=== PATIENT | female | born 1960 | race Caucasian/White ===

== ENCOUNTER 2017-07-16 08:15 | Inpatient (IN) | payer OTHER ==
[2017-07-09 12:52] VITALS: BMI 32.9
[2017-07-16] MEDS ORDERED: CEFAZOLIN 2 GM in DEXTROSE 5%-WATER - 50 ML IVPB ONE (08:25)
[2017-07-16] MEDS ORDERED: GABAPENTIN 300 MG CAPSULE (FP) PO ONE (08:25)
[2017-07-16] MEDS ORDERED: TRANEXAMIC ACID 1000 MG/10 ML VIAL IVPUSH ONE ×2 (08:25→13:51)
[2017-07-16] MEDS ORDERED: ROPIVICAINE 0.2%/MORPH PF/KETOROLAC - 51ML DISP.SYRINGE IA ONE ×2 (08:25→13:49)
[2017-07-16] MEDS ORDERED: oxyCODONE HCL 10 MG SUSTAINED ACTING TABLET PO ONE (08:25)
[2017-07-16] MEDS ORDERED: PANTOPRAZOLE 40 MG TABLET (FP) PO ONE (08:25)
[2017-07-16] MEDS ORDERED: VANCOMYCIN 1,250 MG in DEXTROSE 5%-WATER - 250 ML IVPB ONE (08:25)
[2017-07-16] MEDS ORDERED: CELECOXIB 200 MG CAPSULE PO ONE (08:25)
[2017-07-16] MEDS ORDERED: VANCOMYCIN 1,000 MG VIAL (RESTRICTED TO ID ONLY) ONE (09:38)
[2017-07-16] MEDS ORDERED: MIDAZOLAM HCL 2 MG/2 ML SINGLE DOSE VIAL ONE (11:40)
[2017-07-16] MEDS ORDERED: ROPIVACAINE HCL 0.5% 30ML VIAL ONE (11:40)
[2017-07-16] MEDS ORDERED: DEXAMETHASONE SOD PHOSPHATE/PF 10 MG/ML SDV ONE (11:40)
[2017-07-16] MEDS ORDERED: ceFAZolin SODIUM 1 GM VIAL ONE (12:18)
[2017-07-16] MEDS ORDERED: DEXAMETHASONE SOD PHOSPHATE 4 MG/1 ML VIAL ONE ×2 (12:24→14:23)
[2017-07-16] MEDS ORDERED: SUCCINYLCHOLINE CHLORIDE 200 MG/10 ML VIAL ONE (12:24)
[2017-07-16] MEDS ORDERED: ONDANSETRON 4 MG/2 ML VIAL ONE ×2 (12:24→14:23)
[2017-07-16] MEDS ORDERED: ONDANSETRON 4 MG/2 ML VIAL IVPUSH PRN ×2 (13:04→15:05)
[2017-07-16] MEDS ORDERED: oxyCODONE HCL 5 MG TABLET PO PRN (13:05)
[2017-07-16] MEDS ORDERED: ACETAMINOPHEN 325 MG TABLET (FP) PO SCH (13:15)
[2017-07-16] MEDS ORDERED: VANCOMYCIN 1,000 MG VIAL (RESTRICTED TO ID ONLY) IVPB ONE (13:50)
[2017-07-16 14:16] LABS: HIV 1 & 2 AB NEGATIVE; HIV 1 AGp24 NEGATIVE
[2017-07-16] MEDS ORDERED: TRANEXAMIC ACID 1000 MG/10 ML VIAL ONE (14:23)
[2017-07-16] MEDS: ACETAMINOPHEN 1000 MG/100 ML VIAL (NON FORMULARY) IVPB ONE (14:55)
[2017-07-16] MEDS ORDERED: KETOROLAC TROMETHAMINE 30 MG/1 ML VIAL ONE (14:59)
[2017-07-16] MEDS ORDERED: traMADol HCL 50 MG TABLET ONE (14:59)
[2017-07-16] MEDS ORDERED: ACETAMINOPHEN INJECTION 100 ML IVPB ONE (15:00)
[2017-07-16] MEDS: KETOROLAC TROMETHAMINE 30 MG/1 ML VIAL IVPUSH SCH ×2 (15:00→21:37)
[2017-07-16] MEDS ORDERED: MAGNESIUM HYDROX 2400MG/30ML ORAL SUSPENSION 30 ML CUP PO PRN (15:05)
[2017-07-16] MEDS ORDERED: MAG HYDROX/AL HYDROX/SIMETH 30 ML UNIT-DOSE CUP PO PRN (15:05)
[2017-07-16] MEDS ORDERED: LACTATED RINGERS SOLUTION 1,000 ML IV SCH (15:15)
[2017-07-16] MEDS: traMADol HCL 50 MG TABLET PO SCH ×2 (15:16→21:37)
--- NOTE | 2017-07-16 15:29 | HP ---
Admitting History and Physical - Admission Chief Complaint: right knee replacement instability, patellofemoral pain / OA History of Present Illness: 57yo female with hx of bilateral knee replacements, continued left knee pain and instability. On exam was found to have significant laxity. 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 Pt had bone scan in office which showed uptake in the patella. History Source: Patient, Medical Record Limitations to Obtaining History: No Limitations - Past Surgical History Past Surgical History: Yes: Joint Replacement - Advance Directives Advance Directives: Yes: Health Care Proxy - Smoking History Smoking history: Never smoked - Alcohol/Substance Use Hx Alcohol Use: No - Social History Usual Living Arrangement: Yes: With Spouse Home Medications - Allergies Allergies/Adverse Reactions: Allergies Allergy/AdvReac Type Severity Reaction Status Date / Time Penicillins Allergy Unknown CHILDHOOD Verified 07/16/17 09:10 - Home Medications Home Medications: Ambulatory Orders Multivitamin [One Daily] 1 each PO DAILY 07/09/17 Omeprazole 20 mg PO DAILY 07/09/17 Venlafaxine HCl ER [Effexor Xr -] 75 mg PO HS 07/09/17 Vit C/Vit E/Selenium/Herb#191 [Immunicare Capsule] 1 each PO DAILY 07/09/17 Physical Examination Vital Signs: Vital Signs Temperature 97.9 F 07/16/17 14:40 Pulse Rate 64 07/16/17 15:10 Respiratory Rate 20 07/16/17 15:10 Blood Pressure 119/67 07/16/17 15:10 O2 Sat by Pulse Oximetry (%) 96 07/16/17 15:10 Constitutional: Yes: Well Nourished, No Distress, Calm Eyes: Yes: WNL, Conjunctiva Clear, EOM Intact HENT: Yes: WNL, Atraumatic, Normocephalic Neck: Yes: WNL, Supple Cardiovascular: Yes: WNL, Regular Rate and Rhythm Respiratory: Yes: WNL, Regular Gastrointestinal: Yes: WNL, Soft ...Rectal Exam: Yes: Deferred Musculoskeletal: Yes: Joint Swelling, Muscle Pain, Other (varus/valgus laxity) Edema: No Peripheral Pulses WNL: Yes Integumentary: Yes: WNL Wound/Incision: Yes: Clean/Dry Neurological: Yes: WNL, Alert, Oriented ...Motor Strength: WNL Psychiatric: Yes: WNL, Alert, Oriented Labs: Reviewed in chart Imaging - Results X-ray: Image Reviewed Other: Other (NM Bone scan reviewed- results in office EMR. Uptake in patella due to arthritis.) Problem List - Problems (1) Painful total knee replacement Code(s): T84.84XA - PAIN DUE TO INTERNAL ORTHOPEDIC PROSTH DEV/GRFT, INIT Z96.659 - PRESENCE OF UNSPECIFIED ARTIFICIAL KNEE JOINT Qualifiers: Encounter type: initial encounter Qualified Code(s): T84.84XA - Pain due to internal orthopedic prosthetic devices, implants and grafts, initial encounter; T84.84XA - Pain due to internal orthopedic prosthetic devices , implants and grafts, initial encounter; T84.84XA - Pain due to internal orthopedic prosthetic devices, implants and grafts, initial encounter; Z96.659 - Presence of unspecified artificial knee joint; Z96.659 - Presence of unspecified artificial knee joint Assessment/Plan 57yo female with left knee replacement laxity, patellar pain due to arthritis. Plan is open polyethylene exchange, patellar resurfacing. Component exchange if loose or malpositioned.
--- NOTE | 2017-07-16 15:30 | OP ---
Operative Note - Note: Operative Date: 07/16/17 Pre-Operative Diagnosis: left TKA instabilty, patellar OA Operation: left TKA revision of polyethylene component and patellar resurfacing Post-Operative Diagnosis: Same as Pre-op Surgeon: Isaiah Amaro Locomotive Firer/Fireman: Jannie Banerjee Anesthesia: Spinal Estimated Blood Loss (mls): 50
[2017-07-16] MEDS: CEFAZOLIN 2 GM in DEXTROSE 5%-WATER - 50 ML IVPB SCH (18:07)
[2017-07-16] MEDS: oxyCODONE HCL 5 MG TABLET PO PRN (21:05)
[2017-07-16] MEDS: CELECOXIB 200 MG CAPSULE PO SCH (21:37)
[2017-07-16] MEDS: GABAPENTIN 300 MG CAPSULE (FP) PO SCH (21:37)
[2017-07-16] MEDS: SENNOSIDES/DOCUSATE COMBO (SENNA PLUS) TABLET (UD) PO SCH (21:37)
[2017-07-16] MEDS: VENLAFAXINE HCL 75 MG E.R. CAPSULES (FP) PO SCH (21:37)
[2017-07-16] MEDS: ACETAMINOPHEN 325 MG TABLET (FP) PO SCH (21:37)
[2017-07-16] MEDS: ASCORBIC ACID 500 MG TABLET (FP) PO SCH (21:37)
[2017-07-17] MEDS ORDERED: DEXAMETHASONE SOD PHOSPHATE 10 MG/1 ML VIAL IVPB ONE
[2017-07-17] MEDS: CEFAZOLIN 2 GM in DEXTROSE 5%-WATER - 50 ML IVPB SCH (01:38)
[2017-07-17] MEDS: ACETAMINOPHEN 325 MG TABLET (FP) PO SCH ×4 (03:00→21:44)
[2017-07-17] MEDS: KETOROLAC TROMETHAMINE 30 MG/1 ML VIAL IVPUSH SCH ×2 (03:00→09:25)
[2017-07-17] MEDS: traMADol HCL 50 MG TABLET PO SCH ×4 (03:15→21:42)
[2017-07-17] MEDS: LACTATED RINGERS SOLUTION 1,000 ML IV SCH ×2 (07:59→15:17)
[2017-07-17] MEDS: ACETAMINOPHEN 1000 MG/100 ML VIAL (NON FORMULARY) IVPB ONE (08:00)
[2017-07-17 08:02] LABS: MCH 30.8 pg (25.7-33.7); MCHC 33.7 g/dl (32.0-36.0); MEAN CELL VOLUME 91.2 fl (80-96); MEAN PLT VOLUME 8.4 fl (7.5-11.1); PLATELET COUNT 324 K/MM3 (134-434); RDW 13.8 % (11.6-15.6); WHITE BLOOD COUNT 13.8 K/mm3 (4.0-10.8)
[2017-07-17] MEDS: ASPIRIN 325 MG TABLET PO SCH (08:06)
[2017-07-17] MEDS: oxyCODONE HCL 5 MG TABLET PO PRN ×3 (08:07→21:43)
[2017-07-17] MEDS ORDERED: DEXAMETHASONE SOD PHOSPHATE/PF 10 MG/ML SDV ONE (08:26)
[2017-07-17] MEDS ORDERED: ROPIVACAINE HCL 0.5% 30ML VIAL ONE (08:27)
[2017-07-17] MEDS ORDERED: MIDAZOLAM HCL 2 MG/2 ML SINGLE DOSE VIAL ONE (08:27)
[2017-07-17 08:28] LABS: ANION GAP 9 (8-16); CALCIUM 9.5 mg/dl (8.4-10.2); CO2 26 mmol/L (22-28); CREATININE 0.7 mg/dl (0.6-1.3); GLUCOSE,RANDOM 125 mg/dl (74-106)
--- NOTE | 2017-07-17 08:39 | PN ---
Progress Note (short form) - Note Progress Note: 57F POD1 s/p revision left TKR under spinal anesthetic with peripheral nerve blocks for post operative pain. Pt is doing well, states that pain is well controlled. Pt does not report any anesthetic complications. Sensory and motor function intact in bilateral lower extremities.
[2017-07-17] MEDS: CELECOXIB 200 MG CAPSULE PO SCH ×2 (09:24→21:43)
[2017-07-17] MEDS: MULTIVITAMINS (DAILY MVI) TABLET (FP) PO SCH (09:24)
[2017-07-17] MEDS: PANTOPRAZOLE 40 MG TABLET (FP) PO SCH (09:24)
[2017-07-17] MEDS: GABAPENTIN 300 MG CAPSULE (FP) PO SCH ×2 (09:24→21:42)
[2017-07-17] MEDS: SENNOSIDES/DOCUSATE COMBO (SENNA PLUS) TABLET (UD) PO SCH ×2 (09:25→21:43)
[2017-07-17] MEDS: ASCORBIC ACID 500 MG TABLET (FP) PO SCH ×2 (09:25→21:43)
--- NOTE | 2017-07-17 09:34 | OP ---
DATE OF OPERATION: 07/16/2017 PREOPERATIVE DIAGNOSIS: Left total knee replacement instability and patellofemoral pain. POSTOPERATIVE DIAGNOSIS: Left total knee replacement instability and patellofemoral pain. PROCEDURE: Left total knee replacement, revision of polyethylene component, and patellar arthroplasty. ATTENDING: Rafael Aggarwal MD HEDGE FUND MANAGER: SEDA Dasilva ANESTHESIA: Spinal plus sedation. ESTIMATED BLOOD LOSS: 50 mL COMPLICATIONS: None. SPECIMENS: Resected patellar bone and removed polyethylene component were sent for pathology analysis. TOURNIQUET TIME: 15 minutes. COMPLICATIONS: None. DISPOSITION: The patient was transferred to the PACU in stable condition. IMPLANTS USED: Ramy Triathlon size 4, 16-mm polyethylene component and 35-mm patellar component. INDICATIONS: This is a 57-year-old female who presented complaining of left knee pain. She had a history of a left total knee replacement several years prior and had continued anterior knee pain as well as feelings of instability. Patient was seen and examined by Dr. Aggarwal, and it was found that the knee had significant varus/valgus laxity. In addition, she had patellofemoral pain, and a bone scan showed uptake in the patella consistent with arthritic changes. The patient was initially treated nonoperatively but continued to have severe knee pain and ambulatory dysfunction. She was felt to be an appropriate candidate for revision of the knee replacement. The risks, benefits, and alternatives to the procedure were explained to the patient, and the patient desired to have the procedure performed. DESCRIPTION OF PROCEDURE: On the day of surgery, the patient was taken to the operating room and placed on the OR table. Spinal anesthesia was administered by the anesthesiologist. The patient was then positioned supine on the table, and all bony prominences were padded. A nonsterile tourniquet was placed on the proximal thigh. The left knee was then prepped and draped in the usual sterile fashion. Intravenous antibiotics were given for infection prophylaxis. A surgical timeout was then performed with the team, and the patient's identity, procedure, side, availability of implants, and the administration of antibiotics were confirmed. With the knee flexed, a midline incision was made and carried down through the subcutaneous fat to the underlying retinaculum. This incision incorporated the previous knee replacement incision scar. A medial parapatellar arthrotomy was performed. This was followed by a subperiosteal dissection of the tissue off the proximal medial tibia. A portion of fat pad and scar tissue was removed from under the patellar tendon which was found to be fibrotic and thickened. The patella itself was noted to be severely arthritic, and all cartilage was lost. There was also erosion of the bony contours of the patella. Caliper was used to measure the thickness of the patella, and an oscillating saw was then used to resect the patella to a flat cut surface, leaving a final thickness of 12 mm for later resurfacing. The [employer] patellar alignment guide was then used to drill holes for patellar component. We measured this as 35 mm, and trial patellar component was tested and, with the current components in place, had good patellar tracking. Attention was then turned to the tibia. The knee was flexed further, and the polyethylene insert was removed using an osteotome. The patient had an 11-mm insert in there and had considerable varus/valgus laxity. The medial and lateral collateral ligaments were intact, however. We used a bone tamp to gently tap the femoral and tibial components with a mallet to check for motion at the implant bone interface, and none was found. The implants were deemed to be well fixed and, therefore, did not need to be revised. The overall position of the components in terms of rotation appeared to be adequate. There was simply too much soft tissue laxity, and therefore, we elected to try a thicker polyethylene component. We tried multiple components and found that a 16-mm component gave the best combination of stability in both flexion and extension, and this was the insert that we chose to go with. The tibial tray meeting surface was then cleaned of any soft tissue debris, washed with normal saline via pulsatile lavage, and dried. The final 16-mm polyethylene component was placed, and the knee was again taken through a full range of motion and found to be stable. The patella was then everted, and its bony surface was cleaned with pulsatile lavage and dried. Tourniquet was inflated, and bone cement was then prepared on the back table. The patellar component was then cemented onto the patella, and once the cement had hardened, the tourniquet was deflated. The knee was then again taken through a full range of motion to assess stability, balance, and patellar tracking. This was found to be optimal, and we then proceeded to wound closure. A 3-minute dilute Betadine lavage was performed according to the [facility] protocol. Following that, the wound was irrigated with normal saline using pulsatile lavage. No. 1 Vicryl and No. 0 V-Loc 180 barbed sutures were used to close the arthrotomy. No. 1 Vicryl sutures were used for the deep subcutaneous tissues. Skin was closed with both a 2-0 V-Loc 90 running barbed suture in the deep subcuticular layer and a 3-0 Monocryl suture in a running subcuticular fashion for the superficial layer. Dermabond skin adhesive was applied for additional closure strength and watertight seal. Once this was completed, a sterile Aquacel dressing was applied. The leg was wrapped in a sterile compressive dressing from ankle to mid-thigh. The patient was then awakened and taken to the PACU in stable condition. RAFAEL AGGARWAL M.D. [id number]
--- NOTE | 2017-07-17 17:37 | SURG ---
Surgery Aviation Medicine Specialist Note Aviation Medicine Specialist: Jannie Banerjee PA-C Date of Service: 07/16/17 Diagnosis: left TKA instabilty, patellar OA Procedure: left TKA revision of polyethylene component and patellar resurfacing I was present for the entirety of the operative procedure. For further detail, please refer to operative report. Visit type - Case Type Case Type: Scheduled Admission - Emergency Emergency Visit: No - New patient This patient is new to me today: Yes Date on this admission: 07/16/17
--- NOTE | 2017-07-17 20:33 | PN ---
Progress Note (short form) - Note Progress Note: Pt seen and examined. Doing very well. Pain well controlled. AVSS Selected Entries 07/17/17 07/17/17 14:51 19:39 Temperature 98.3 F Pulse Rate 83 Respiratory 18 Rate Blood Pressure 132/77 O2 Sat by Pulse 97 Oximetry (%) Oxygen Delivery Room Air Method Laboratory Tests 07/17/17 07/17/17 07:40 07:40 WBC 13.8 H Hgb 12.6 Hct 37.3 Plt Count 324 Sodium 136 Potassium 4.4 Chloride 101 Carbon Dioxide 26 Anion Gap 9 BUN 17 Creatinine 0.7 Random Glucose 125 H Calcium 9.5 Gen: NAD LLE: c/d/i, NVID A/P POD#1 s/p left TKA revision of polyethylene component and patellar resurfacing 1. PT/OOB 2. D/C in AM after PT - f/u in office next Sunday. Problem List - Problems (1) Painful total knee replacement Code(s): T84.84XA - PAIN DUE TO INTERNAL ORTHOPEDIC PROSTH DEV/GRFT, INIT Z96.659 - PRESENCE OF UNSPECIFIED ARTIFICIAL KNEE JOINT Qualifiers: Encounter type: initial encounter Qualified Code(s): T84.84XA - Pain due to internal orthopedic prosthetic devices, implants and grafts, initial encounter; T84.84XA - Pain due to internal orthopedic prosthetic devices , implants and grafts, initial encounter; T84.84XA - Pain due to internal orthopedic prosthetic devices, implants and grafts, initial encounter; Z96.659 - Presence of unspecified artificial knee joint; Z96.659 - Presence of unspecified artificial knee joint
--- NOTE | 2017-07-17 20:42 | DS ---
Physical Examination Vital Signs: Vital Signs Temperature 98.3 F 07/17/17 14:51 Pulse Rate 83 07/17/17 14:51 Respiratory Rate 18 07/17/17 19:39 Blood Pressure 132/77 07/17/17 14:51 O2 Sat by Pulse Oximetry (%) 97 07/17/17 19:39 Labs: CBC, BMP 07/17/17 07:40 07/17/17 07:40 Discharge Summary Reason For Visit: MECHANICAL COMPLICATIONS OF INTERNAL LEFT KNEE PRO Current Active Problems Painful total knee replacement (Acute) Procedures: Principal: left TKA revision of polyethylene component and patellar resurfacing Hospital Course: Admitted for elective surgery. Procedure performed without complications. Pt received postoperative antibiotic prophylaxis and DVT ppx. Ambulated with physical therapy. Stable for discharge home with outpatient followup. Condition: Stable - Instructions Diet, Activity, Other Instructions: Dr. Amaro - Knee Replacement Instructions Keep the Aquacel dressing on until removed by Dr. Amaro in 10-14 days - it is antibacterial and waterproof and you can shower with it on. Call the office for a follow-up appointment with Dr. Amaro in 10-14 days. Take one Aspirin 325mg daily for 6 weeks to prevent blood clots in your legs. Take one Omeprazole 20mg daily for 6 weeks to protect against heartburn and ulcers. Take Celebrex 200mg twice daily for 30 days to reduce swelling and inflammation. Take a multivitamin, stool softener, and extra vitamin C supplement daily. For pain: *Mild pain (1-3/10): Take 1 Tramadol tablet every 4 hours as needed. Moderate pain (4-6/10): Take 1 Tramadol tablet and 1 Percocet tablet every 4 hours as needed. Severe pain (7-10/10): Take 1 Tramadol tablet and 2 Percocet tablets every 4 hours as needed. Activity: You can put as much weight on the operative leg as you want. Right after you get home, there will be a physical therapist coming to your house to help you walk around and bend/straighten your knee. After your follow-up appointment, you will be sent for more intensive outpatient physical therapy which will include machines and equipment that the home therapist cannot bring to your house. Always use a walker or cane for balance and to prevent falls. Disposition: VNS/HOME HEALTH CARE - Home Medications Comprehensive Discharge Medication List: Ambulatory Orders Multivitamin [One Daily] 1 each PO DAILY 07/09/17 Venlafaxine HCl ER [Effexor Xr -] 75 mg PO HS 07/09/17 Vit C/Vit E/Selenium/Herb#191 [Immunicare Capsule] 1 each PO DAILY 07/09/17 Ascorbic Acid [Vitamin C -] 500 mg PO BID tablet 07/17/17 Aspirin [ASA -] 325 mg PO DAILY@0800 tablet 07/17/17 Celecoxib [CeleBREX -] 200 mg PO BID #60 tab 07/17/17 Omeprazole 20 mg PO DAILY #40 tab 07/17/17 Oxycodone HCl/Acetaminophen [Percocet 5-325 mg Tablet] 1 - 2 tab PO Q4H PRN #60 tablet MDD 8 07/17/17 Sennosides/Docusate Sodium [Pericolace -] 1 tablet PO BID tablet 07/17/17 Tramadol HCl [Ultram -] 50 mg PO Q4H PRN #90 tablet MDD 6 07/17/17
[2017-07-17] MEDS: VENLAFAXINE HCL 75 MG E.R. CAPSULES (FP) PO SCH (21:42)
[2017-07-17 22:46] VITALS: BP 101/51; PULSE 61; TEMP 97.9
[2017-07-18 08:34] LABS: MCH 31.4 pg (25.7-33.7); MCHC 34.3 g/dl (32.0-36.0); MEAN CELL VOLUME 91.3 fl (80-96); MEAN PLT VOLUME 8.4 fl (7.5-11.1); PLATELET COUNT 299 K/MM3 (134-434); WHITE BLOOD COUNT 10.1 K/mm3 (4.0-10.8)
[2017-07-18 08:43] LABS: ANION GAP 8 (8-16); CO2 27 mmol/L (22-28); CREATININE 0.8 mg/dl (0.6-1.3); GLUCOSE,RANDOM 97 mg/dl (74-106)
[2017-07-18] MEDS: ASPIRIN 325 MG TABLET PO SCH (08:48)
[2017-07-18] MEDS: oxyCODONE HCL 5 MG TABLET PO PRN (09:25)
[2017-07-18] MEDS: GABAPENTIN 300 MG CAPSULE (FP) PO SCH (09:25)
[2017-07-18] MEDS: traMADol HCL 50 MG TABLET PO SCH (09:26)
[2017-07-18] MEDS: CELECOXIB 200 MG CAPSULE PO SCH (09:27)
[2017-07-18] MEDS: SENNOSIDES/DOCUSATE COMBO (SENNA PLUS) TABLET (UD) PO SCH (09:27)
[2017-07-18] MEDS: ASCORBIC ACID 500 MG TABLET (FP) PO SCH (09:27)
[2017-07-18] MEDS: PANTOPRAZOLE 40 MG TABLET (FP) PO SCH (09:27)
[2017-07-18] MEDS: MULTIVITAMINS (DAILY MVI) TABLET (FP) PO SCH (09:27)
[2017-07-18] MEDS: ACETAMINOPHEN 325 MG TABLET (FP) PO SCH (09:28)
--- NOTE | 2017-07-19 14:48 | PATH ---
Surgical Pathology Report Patient Name: SCOTT YUAN Med. Rec. #: [id number] /Age/Gender: 1960 (Age: 57) / F Account: [id number] Location: [facility] MED-SURG Taken: 07/16/2017 Received: 07/16/2017 Reported: 07/19/2017 Physicians: Isaiah Amaro M.D. Specimen(s) Received A: EXPLANT OF LEFT KNEE B: LEFT KNEE PATELLA BONE Clinical History Left knee instability Final Diagnosis A. EXPLANT, LEFT KNEE, REMOVAL: SURGICAL PROSTHESIS. MACROSCOPIC DIAGNOSIS. B. BONE, KNEE, PATELLA, LEFT, EXCISION: BONE WITH FOCAL DEGENERATIVE CHANGES. Electronically Signed Ramya Ham M.D. Gross Description A. Received fresh labeled "explant of the left knee," is a 6.8 x 4.5 x 3.3 cm white, plastic foreign body, consistent with a knee explant. No soft tissue is present. No sections are submitted, gross only. B. Received in formalin labeled "left knee patella bone," are 2 porter, irregular portions of bone measuring 4.0 x 2.2 x 0.4 cm and 3.8 x 3.5 x 0.7 cm. The articular surfaces are porter-yellow and diffusely granular. No areas of eburnation are present. The underlying trabecular bone is yellow and hard. Cloud Security [employer] sections are submitted in one cassette, following decalcification. 07/17/201707/17/2017
== END 2017-07-18 12:40 | disposition home health service (06) | DRG 468 ==
LOC: FM/S 08:15
PROVIDERS: ADMIT Student in an Organized Health Care Education/Training Program; ATTEND Student in an Organized Health Care Education/Training Program
PROC: 0SRD0J9 Replacement of Left Knee Joint with Synthetic Substitute, Cemented, Open Approach (ICD-10-PCS; 2017-07-16)
PROC: 0SPD0JZ Removal of Synthetic Substitute from Left Knee Joint, Open Approach (ICD-10-PCS; principal; 2017-07-16 12:05)
DX: T84.093A Other mechanical complication of internal left knee prosthesis, initial encounter (principal); Y83.9 Surgical procedure, unspecified as the cause of abnormal reaction of the patient, or of later complication, without mention of misadventure at the time of the procedure
CPT/HCPCS: 36415; 73560-TC-LT; 80048; 85027; 86803; 87389; 88300-TC; 88304-TC; 88311-TC; 94010; 94760; 97116-GP; 97162-GP

== ENCOUNTER 2019-08-04 07:34 | Day surgery (SDC) | payer OTHER ==
[2019-07-30 16:56] VITALS: BMI 30.9
[2019-08-04] MEDS ORDERED: LIDOCAINE HCL/PF 2% SDV 5ML VIAL ONE (08:11)
[2019-08-04] MEDS ORDERED: PROPOFOL 20 ML ONE ×3 (08:12)
[2019-08-04 09:00] VITALS: TEMP 97.8
[2019-08-04 09:26] VITALS: BP 128/82; PULSE 68
== END 2019-08-04 09:25 | disposition home or self-care (01) ==
LOC: FASU-ENDO 07:34
PROVIDERS: ATTEND Internal Medicine Gastroenterology
PROC: 0DJD8ZZ Inspection of Lower Intestinal Tract, Via Natural or Artificial Opening Endoscopic (ICD-10-PCS; principal; 2019-08-04 08:30)
DX: Z12.11 Encounter for screening for malignant neoplasm of colon (principal)

== ENCOUNTER 2021-07-29 04:31 | Day surgery (SDC) | payer OTHER ==
[2021-07-29] MEDS ORDERED: LIDOCAINE HCL 1%, 10 MG/ML (20ML VIAL) ONE (07:23)
[2021-07-29] MEDS ORDERED: BUPIVACAINE HCL/PF 0.5% (5MG/ML) 10 ML VIAL ONE (07:23)
[2021-07-29] MEDS ORDERED: MIDAZOLAM HCL 2 MG/2 ML SINGLE DOSE VIAL ONE (07:38)
[2021-07-29] MEDS ORDERED: PROPOFOL 20 ML ONE ×2 (07:38→08:11)
[2021-07-29] MEDS ORDERED: ceFAZolin 2 GRAM PREMIX BAG IVPB ONE ×2 (07:40→07:55)
[2021-07-29] MEDS ORDERED: LIDOCAINE HCL 1%, 10 MG/ML (20ML VIAL) NR ONE (08:04)
[2021-07-29] MEDS ORDERED: ONDANSETRON 4 MG/2 ML VIAL ONE ×2 (08:06→09:43)
[2021-07-29] MEDS ORDERED: ceFAZolin SODIUM 1 GM VIAL ONE (08:06)
[2021-07-29] MEDS ORDERED: DEXAMETHASONE SOD PHOSPHATE 4 MG/1 ML VIAL ONE (08:06)
[2021-07-29] MEDS ORDERED: DESFLURANE GAS 240 ML BOTTLE IH ONE (08:09)
[2021-07-29] MEDS ORDERED: BUPIVACAINE HCL/PF 0.5% (5MG/ML) 10 ML VIAL IJ ONE (08:27)
[2021-07-29] MEDS ORDERED: ONDANSETRON 4 MG/2 ML VIAL IVPUSH PRN (09:01)
[2021-07-29] MEDS ORDERED: oxyCODONE HCL 5 MG TABLET PO PRN (09:01)
[2021-07-29] MEDS ORDERED: LACTATED RINGERS SOLUTION 1,000 ML IV SCH (09:15)
[2021-07-29 09:32] VITALS: BP 152/69; PULSE 61; TEMP 96.4
[2021-07-29] MEDS ORDERED: ONDANSETRON 4 MG/2 ML VIAL IVPUSH ONE (10:01)
== END 2021-07-29 10:45 | disposition home or self-care (01) ==
LOC: JASU-SURG 04:31
PROVIDERS: ATTEND Podiatrist Foot Surgery
PROC: 0SGP0JZ Fusion of Right Toe Phalangeal Joint with Synthetic Substitute, Open Approach (ICD-10-PCS; 2021-07-29)
PROC: 0L8V0ZZ Division of Right Foot Tendon, Open Approach (ICD-10-PCS; principal; 2021-07-29 07:30)
DX: M20.41 Other hammer toe(s) (acquired), right foot (principal)
CPT/HCPCS: 76000-TC-FY; 88304-TC; 88311-TC